=== PATIENT | male | born 1960 | race Caucasian/White ===

== ENCOUNTER 2022-01-18 14:13 | Day surgery (SDC) | payer OTHER ==
[~2022-01-18] VITALS: Ht 182.9 cm; Wt 91.4 kg
[~2022-01-18 14:13] MED LIST: DIGOXIN125 MCG PO; LOW DOSE ASPIRI81 MG PO; METOPROLOL SUCC25 MG PO
--- NOTE | 2022-01-18 16:29 | NUR ---
01/18/22 2919 Marilee Andres 0947 PT TO PACU ALERT AWAKE AND TALKING, PT HAS HX OF AFIB CONTROLLED WITH MEDICATION HE HAS NOT HAD HIS MEDS IN 2 DAYS, HIS HR HAS BEEN HIGH 160 AND LOW 33 DURING RECOVERY, PT DENIES CHEST PAIN OR SOB. PT DECLINES WATER OR JUICE.
--- NOTE | 2022-01-21 16:30 | OR ---
[facility] [address] [place], [place] [address] Signed DATE OF OPERATION: 01/18/2022 SURGEON: Chano Brito MD PREOPERATIVE DIAGNOSES: 1. History of colon polyps (2013). 2. Atrial fibrillation. POSTOPERATIVE DIAGNOSIS: Polyps x2 (40 cm and 20 cm. PROCEDURE: Total colonoscopy to cecum with cold snare polypectomy x1 and cold morcellation polypectomy x1. ANESTHESIA: Intravenous sedation; fentanyl 100 mcg, Versed 6 mg. INDICATION: This 61-year-old white man is a patient of BENITA Rojas. He is well known to me from the past. He last underwent colonoscopy in 2013 at which time, he had three adenomatous polyps, all of them in the left side. He is symptom-free at this time. He does now have atrial fibrillation for which he is treated only with aspirin. His primary provider is BENITA Rojas. He is admitted at this time to undergo colonoscopy. He understands the risk of bleeding, infection, and perforation. FINDINGS: The prep was good. Complete colonoscopy was undertaken to the cecum without question. There were two polyps, one at 40 cm and the other at 20, both were excised completely. There were no other findings of concern. DESCRIPTION OF PROCEDURE: The patient was brought to the endoscopy suite and placed in the lateral decubitus position, given intravenous sedation to the point of slurred speech and nystagmus. Digital rectal examination was normal. An Olympus video colonoscope was passed in the rectum and manipulated throughout the colon ultimately intubating the cecum itself. The ileocecal valve and appendiceal orifice were easily identified. Irrigation was undertaken as needed. The scope was carefully withdrawn. Examination throughout showed no sign of abnormality until Electronically Signed By: CHANO BRITO MD 01/21/22 1630 PATIENT NAME: CHARO RAINES OPERATIVE REPORT DATE OF : 58 REPORT #: [id number] PHYSICIAN: CHANO BRITO MD PCP: LOTUS ZAMBRANO PA-C REPORT IS CONFIDENTIAL AND NOT TO BE RELEASED WITHOUT AUTHORIZATION [facility] [address] [place], [place] [address] Signed approximately 40 cm from the anal verge, where a small polyp was noted. This was excised with three bites of a cold morcellation polypectomy device completely excising the polyp. This was passed for pathology. The scope was withdrawn and approximately 20 cm from the anal verge was a slightly larger sessile polyp, which was excised with cold snare technique. There was no untoward bleeding. The specimen was passed for pathology. Scope was withdrawn and retroflexed view of the rectum was normal. Scope was removed and the patient was taken to the recovery room in good condition. CONCLUDING DIAGNOSIS: Polyps x2. PLAN: Recommend repeat colonoscopy in three years, sooner if clinically indicated. He will return to the ongoing care of BENITA Rojas MD FLAKO Sharp/S[employer] /[id number] cc: BENITA Rojas Copies: ~ Electronically Signed By: CHANO BRITO MD 01/21/22 1630 PATIENT NAME: CHARO RAINES OPERATIVE REPORT DATE OF : 58 REPORT #: [id number] PHYSICIAN: CHANO BRITO MD PCP: LOTUS ZAMBRANO PA-C REPORT IS CONFIDENTIAL AND NOT TO BE RELEASED WITHOUT AUTHORIZATION
--- NOTE | 2022-01-23 16:52 | PATH ---
[facility] [address] [place] [facility] [place] [address] Signed SPECIMEN(S): A COLON POLYP AT 40 CM SPECIMEN(S): B COLON POLYP AT 20 CM SPECIMEN SOURCE: A. COLON POLYP AT 40 CM B. COLON POLYP AT 20 CM CLINICAL HISTORY: History of polyps FINAL PATHOLOGIC DIAGNOSIS: A. Colon, polyp at 40 cm, polypectomy: - Tubular adenoma. - Negative for high-grade dysplasia or malignancy. B. Colon, polyp at 20 cm, polypectomy: - Tubular adenoma. - Negative for high-grade dysplasia or malignancy. NAL:cml:C2NR MICROSCOPIC EXAMINATION: Histologic sections of all submitted blocks are examined by light microscopy. These findings, together with the gross examination, support the pathologic diagnosis. GROSS DESCRIPTION: Two specimens are received in two containers, labeled "DV." A. The specimen, labeled "DV, 1," and designated on the requisition "colon polypectomy 40 cm," is received in formalin and consists of two araujo soft tissue fragments that measure 0.2 to 0.3 cm in greatest dimension. The specimen is entirely submitted in cassette (A1). B. The specimen, labeled "DV, 2," and designated on the requisition "colon polypectomy 20 cm," is received in formalin and consists of one polypoid araujo soft tissue fragments that measure 0.5 cm in greatest dimension. The specimen is entirely submitted in cassette (B1). AI (under the direct supervision of a pathologist) The Gross Description was prepared using a voice recognition system. The report was reviewed for accuracy; however, sound-alike word errors, addition and/or deletions may occur. If there is any question about this report, please contact Client Services. PERFORMING LABORATORY: PATIENT NAME: CHARO RAINES PATHOLOGY DATE OF : 58 REPORT #: [id number] PHYSICIAN: RAE OSEGUERA PCP: LOTUS ZAMBRANO PA-C REPORT IS CONFIDENTIAL AND NOT TO BE RELEASED WITHOUT AUTHORIZATION [facility] [address] [place] [address] Signed The technical component was performed [email or web address] [address] (Energy Systems Engineer: Aminah Torres MD; CLIA# [id number]). Professional interpretation [facility], [address] [address] (CLIA# [id number]). Diagnostician: Stacy Baum MD Pathologist Electronically Signed 01/23/2022 Copies: ~ PATIENT NAME: CHARO RAINES PATHOLOGY DATE OF : 58 REPORT #: [id number] PHYSICIAN: RAE OSEGUERA PCP: LOTUS ZAMBRANO PA-C REPORT IS CONFIDENTIAL AND NOT TO BE RELEASED WITHOUT AUTHORIZATION
== END 2022-01-18 16:19 | disposition home or self-care (01) ==
LOC: OPS 14:13 → DS 14:15 → OPS 16:19
PROVIDERS: ATTEND Surgery
PROC: 0DBE8ZX Excision of Large Intestine, Via Natural or Artificial Opening Endoscopic, Diagnostic (ICD-10-PCS; 2022-01-18)
PROC: 0DBE8ZX Excision of Large Intestine, Via Natural or Artificial Opening Endoscopic, Diagnostic (ICD-10-PCS; principal; 2022-01-18 14:00)
DX: Z12.11 Encounter for screening for malignant neoplasm of colon (principal); D12.6 Benign neoplasm of colon, unspecified; K63.5 Polyp of colon; I48.91 Unspecified atrial fibrillation; Z87.19 Personal history of other diseases of the digestive system
CPT/HCPCS: 99153; G0500; J2250; J3010

== ENCOUNTER 2025-04-29 09:20 | Day surgery (SDC) | payer MEDICARE, OTHER ==
[2025-04-26 08:37] VITALS: BP 147/89
[~2025-04-29] VITALS: Ht 182.9 cm; Wt 83.0 kg
[~2025-04-29 09:20] MED LIST changes: +ADULT LOW DOSE81 MG PO; +ASPIRIN325 MG PO; +HYDROCODON-ACE1 EA11 PO; +IBLOOD GLUCOSE TEST STRIP 1 EA TEST VI PRN; +IBUPROFEN200 M1 PO; +LACTATED RINGER'S 1,000 ML IV SCH; +LIDOCAINE HCL 1% 5 ML SDV INJ ONE; +LIPITOR20 MG PO; +MELOXICAM7.5 MG PO; +MIDAZOLAM HCL 5 MG/5 ML VIAL IV PRN; +SENNA LAX8.6 MG PO; +fentaNYL citrate 100 MCG/2 ML VIAL IV PRN
[2025-04-29 09:32] VITALS: BP 153/93
[2025-04-29] MEDS ORDERED: LIDOCAINE HCL 2% 5 ML SDV ONE (13:22)
[2025-04-29] MEDS ORDERED: propofoL 200 MG/20 ML VIAL ONE (13:22)
--- NOTE | 2025-04-29 13:39 | NUR ---
04/29/25 1339 Emi Veliz 1323-PT ARRIVES TO PACU, VIA STRETCHER, PT RESTING ON LT SIDE, PT NOT RESPONISVE TO VERBAL OR TACTILE STIMULI, VSS ON RA, RR EVEN AND UNLABORED. 1335-PT AWAKENS ON OWN, DENIES PAIN OR NAUSEA, VSS ON RA. PT PASSING GAS.
[2025-04-29 13:46] VITALS: BP 105/83
[2025-04-29] MEDS ORDERED: NALOXONE HCL 0.4 MG SYR IV PRN (14:45)
[2025-04-29] MEDS ORDERED: fentaNYL citrate 50 MCG/ML SDV IV PRN (14:45)
[2025-04-29] MEDS ORDERED: ondansetron HCL 4 MG/2 ML VIAL IV PRN (14:45)
--- NOTE | 2025-04-30 09:39 | OR ---
[facility] [address] [place], [place] [address] Signed DATE OF OPERATION: 04/29/2025 SURGEON: Chano Brito MD PREOPERATIVE DIAGNOSES: 1. History of polyps x2 2013. 2. Progressive tremor, uncertain etiology. POSTOPERATIVE DIAGNOSES: 1. Small polyp of rectum excised. 2. Internal hemorrhoids. 3. Tremor worsened with propofol infusion initially. PROCEDURE: Total colonoscopy to cecum with cold morcellation polypectomy x1. ANESTHESIA: Intravenous sedation, propofol, Lalo Hussein CRNA. INDICATIONS: This 64-year-old white man is patient of BENITA Rojas. He underwent colonoscopy in 2013 and at that time was noted to have polyps. Followup colonoscopy in 2021 showed tubular adenoma without dysplasia at 40 cm and another tubular adenoma at 20 cm. He does have atrial fibrillation, which is asymptomatic, but does not require anticoagulation other than aspirin. He is on metoprolol and digoxin as well as Lipitor and meloxicam. The patient additionally is noted to have tremulousness, which is somewhat inapparent to the patient himself. Evaluation for this is not anticipated at this time and has been considered by his primary provider. He is admitted at this time to undergo colonoscopy for surveillance understanding the risk of bleeding, infection, and perforation related to colonoscopy. He understands all this, he wished to proceed. FINDINGS: The prep was excellent. Complete colonoscopy was undertaken to the cecum with full intubation of the cecum. The colon was well prepped. There was a small polyp of the rectum, which was excised with cold morcellation technique. Retroflexed view confirmed internal hemorrhoids as well. Of special note, induction of propofol for sedation resulted in marked worsening of the Electronically Signed By: CHANO BRITO MD 04/30/25 0939 PATIENT NAME: CHARO RAINES OPERATIVE REPORT DATE OF : 58 REPORT #: [id number] PHYSICIAN: CHANO BRITO MD PCP: LOTUS ZAMBRANO PA-C REPORT IS CONFIDENTIAL AND NOT TO BE RELEASED WITHOUT AUTHORIZATION [facility] [address] [place], [place] [address] Signed tremor transiently ultimately settling down as is usually the case. DESCRIPTION OF PROCEDURE: The patient was brought to the endoscopy suite and placed in lateral decubitus position, given intravenous sedation with propofol infusional sedation technique. Full cardiopulmonary monitoring was maintained. The patient had much exacerbation of his underlying tremor and in time this resolved. Digital rectal examination performed showed no sign of abnormality. An Olympus video colonoscope was passed in the rectum and manipulated throughout the colon ultimately intubating the cecum itself. The ileocecal valve was normal as was the appendiceal orifice. The scope was then withdrawn. Examination showed no sign of abnormality until the rectum where a small polyp was noted. This was excised with cold morcellation technique. Retroflexed view was undertaken showing internal hemorrhoidal changes as well. Scope was straightened, withdrawn, and removed. The patient was taken to the recovery room in good condition. CONCLUDING DIAGNOSIS: Polyps x1 and internal hemorrhoids. PLAN: Recommend repeat colonoscopy in 10 years or sooner if clinically indicated. As regards to his tremor, further evaluation will be at the discretion of his primary provider, BENITA Rojas. Chano Brito MD JM/MODL /[id number] cc: BENITA Rojas Electronically Signed By: CHANO BRITO MD 04/30/25 0939 PATIENT NAME: CHARO RAINES OPERATIVE REPORT DATE OF : 58 REPORT #: [id number] PHYSICIAN: CHANO BRITO MD PCP: LOTUS ZAMBRANO PA-C REPORT IS CONFIDENTIAL AND NOT TO BE RELEASED WITHOUT AUTHORIZATION [facility] [address] [place] [id number] Signed Copies: ~ Electronically Signed By: CHANO BRITO MD 04/30/25 0939 PATIENT NAME: CHARO RAINES OPERATIVE REPORT DATE OF : 58 REPORT #: [id number] PHYSICIAN: CHANO BRITO MD PCP: LOTUS ZAMBRANO PA-C REPORT IS CONFIDENTIAL AND NOT TO BE RELEASED WITHOUT AUTHORIZATION
--- NOTE | 2025-05-03 16:17 | PATH ---
[facility] [address] [place], [place] [address] Signed SPECIMEN(S): A RECTAL POLYP SPECIMEN SOURCE: A. RECTAL POLYP CLINICAL HISTORY: Pre-2021: Tubular adenoma x 2. Post: Internal hemorrhoids, rectal polyp x 1. A) polyp FINAL PATHOLOGIC DIAGNOSIS: Rectal polyp: - Tubular adenoma (two fragments). - Hyperplastic polyp (one fragment). JVR:chan MICROSCOPIC EXAMINATION: Histologic sections of all submitted blocks are examined by light microscopy. These findings, together with the gross examination, support the pathologic diagnosis. GROSS DESCRIPTION: The specimen, labeled and designated "Zulay Raines, rectal polyp," is received in formalin and consists of three araujo soft tissue fragments, ranging from 0.1-0.3 cm. Entirely submitted in (A1). AB (under the direct supervision of a pathologist) The Gross Description was prepared using a voice recognition system. The report was reviewed for accuracy; however, sound-alike word errors, addition and/or deletions may occur. If there is any question about this report, please contact Client Services. PERFORMING LABORATORY: Technical component was performed by [employer], [address] [place] [id number] (CLIA# [id number]). Professional interpretation was performed by [facility], [address] [place] [phone] (CLIA#: [id number]). Diagnostician: Raul Serrano MD Pathologist Electronically Signed 05/03/2025 PATIENT NAME: CHARO RAINES PATHOLOGY DATE OF : 58 REPORT #: [id number] PHYSICIAN: RAE OSEGUERA PCP: LOTUS ZAMBRANO PA-C REPORT IS CONFIDENTIAL AND NOT TO BE RELEASED WITHOUT AUTHORIZATION [address] [address] Signed Copies: ~ PATIENT NAME: CHARO RAINES PATHOLOGY DATE OF : 58 REPORT #: [id number] PHYSICIAN: RAE OSEGUERA PCP: LOTUS ZAMBRANO PA-C REPORT IS CONFIDENTIAL AND NOT TO BE RELEASED WITHOUT AUTHORIZATION
== END 2025-04-29 14:00 | disposition home or self-care (01) ==
LOC: DS 09:20
PROVIDERS: ATTEND Surgery
PROC: 0DBP8ZX Excision of Rectum, Via Natural or Artificial Opening Endoscopic, Diagnostic (ICD-10-PCS; principal; 2025-04-29 11:40)
DX: Z12.11 Encounter for screening for malignant neoplasm of colon (principal); D12.8 Benign neoplasm of rectum; K64.8 Other hemorrhoids; R25.1 Tremor, unspecified; I10 Essential (primary) hypertension; I48.91 Unspecified atrial fibrillation; Z79.82 Long term (current) use of aspirin; Z79.899 Other long term (current) drug therapy
CPT/HCPCS: 00811; J2003; J2704; J7121